=== PATIENT | male | born 1975 | race Two or more races ===

== ENCOUNTER 2016-10-29 21:59 | Emergency (ER) | payer MEDICAID ==
[~2016-10-29] VITALS: Ht 157.5 cm; Wt 68.0 kg
[~2016-10-29 21:59] MED LIST: ATIVAN1 MG ORAL; FLEXERIL10 MG ORAL; IBUPROFEN600 MG ORAL; NKM; PERCOCET 5-3251 EACH ORAL
[2016-10-29 22:09] VITALS: BP 146/92
--- NOTE | 2016-10-29 22:09 | Emergency Room Report ---
History of Present Illness General Chief Complaint: Alcohol Intoxication Source: Patient, Medical Record, EMS Present Illness HPI This is a 41-year-old male with a history of alcohol and drug abuse. He's been here multiple times in per EMS his been to other hospitals for the same thing. He was at a nearby grocery store and called 911 because he fell paranoid. He said that people are after him. Denies any fever chills denies any nausea vomiting. Denies any suicidal or homicidal thought. Agitated. Admits to alcohol and methamphetamine today. No other complaint. Allergies: Coded Allergies: No Known Allergies (Unverified , 06/22/13) Patient History Past Medical History: see triage record, old chart reviewed Past Surgical History: none Social History: Reports: alcohol use, drug use, smoking Immunizations: other Reviewed Nursing Documentation: PMH: Agreed, PSxH: Agreed Nursing Documentation-PMH Past Medical History: No History, Except For Hx Gastrointestinal Problems: Yes - LIVER CIRRHOSIS Hx Neurological Problems: No - etoh abuse Review of Systems Eye: Denies: blurred vision, eye pain ENT: Denies: ear pain, nose congestion, throat swelling Respiratory: Denies: cough, shortness of breath Cardiovascular: Denies: chest pain, palpitations Gastrointestinal: Denies: abdominal pain, diarrhea, nausea, vomiting Musculoskeletal: Denies: back pain, joint pain Skin: Denies: rash Neurological: Denies: headache, numbness Endocrine: Denies: increased thirst, increased urine Hematologic/Lymphatic: Denies: easy bruising All Other Systems: negative except mentioned in HPI Physical Exam vitals unremarkable Sp02 EP Interpretation: reviewed, normal General Appearance: well appearing, no apparent distress, alert Head: normocephalic, atraumatic Eyes: bilateral eye EOMI, bilateral eye PERRL ENT: hearing grossly normal, normal pharynx Neck: full range of motion, supple, no meningismus Respiratory: chest non-tender, lungs clear, normal breath sounds Cardiovascular #1: regular rate, rhythm, no murmur Gastrointestinal: normal bowel sounds, non tender, no mass, no organomegaly, no bruit, non-distended Musculoskeletal: back normal, gait/station normal, normal range of motion Psychiatric: other - Agitated Skin: warm/dry Medical Decision Making Diagnostic Impression: Primary Impression: Psychosis Qualified Codes: 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 No criteria for 5150. Will give Haldol. We'll discharge home with close followup. This patient is a chronic risk of self injury due to poor impulse control, limited coping skills, and judgment intermittently impaired by intoxication. I believe that the available clinical evidence to suggest that these characteristics derived primarily from personality disorder and are likely very stable over time. Hospitalization would likely attenuate risk of self-harm only during correction period, without lasting risk reduction. Serious self-harm , while possible, would likely be inadvertent, and because of impulsivity, and foreseeable. For these reasons, I do not believe hospitalization would provide meaningful reduction in risk of self-harm. As a nurse getting his medication, he got up and left. Status: improved Disposition: HOME, SELF-CARE Condition: Stable Additional Instructions: Abstain from alcohol and drugs. Followup with rehabilitation. Followup with your Dr. in 2-3 days. Return if worse. NIKA ZAMBRANO M.D. Oct 29, 2016 22:09
[2016-10-29 22:13] VITALS: BP 146/92
[2016-10-29] MEDS ORDERED: Haloperidol 5mg/ml Inj IM ONE (22:15)
== END 2016-10-29 22:13 | disposition home or self-care (01) ==
LOC: EDBD 21:59 → EMR 22:08
DX: F15.150 Other stimulant abuse with stimulant-induced psychotic disorder with delusions (principal); F10.10 Alcohol abuse, uncomplicated; K74.60 Unspecified cirrhosis of liver; F17.200 Nicotine dependence, unspecified, uncomplicated
CPT/HCPCS: 99282